=== PATIENT | male | born 1940 | race Caucasian/White ===

== ENCOUNTER → 2019-03-20 | Outpatient (CLI) | payer MEDICARE ==
[~2019-03-20] MED LIST: GABAPENTIN300 MG; GLIPIZIDE5 MG; JANUVIA100 MG; KEFLEX500 MG PO; LANTUS 3ML100 UNITS/; LEVOTHYROXINE50 MCG; LISINOPRIL10 MG; METOPROLOL SUCC25 MG; REGADENOSON 0.4 MG/5 ML SYR IV ONE; SIMVASTATIN20 MG; TAMSULOSIN
--- NOTE | 2019-03-31 09:48 | Myoview Stress Test ---
DATE OF STUDY: 03/20/2019 08:44:00 Stress Test - Treadmill ONLY PROCEDURE TITLE: Rest/stress single isotope SPECT imaging with pharmacologic stress and gated SPECT imaging. INDICATION: Syncope. PROCEDURE IN DETAIL: Pharmacologic stress testing was performed with regadenoson per protocol. The heart rate was 87 beats per minute at rest increased to 103 beats per minute during the regadenoson infusion. The resting blood pressure was 121/87 mmHg an increased to 170/67 mmHg, which is a normal response. The resting electrocardiogram demonstrated normal sinus rhythm. There were no ST-segment changes suggestive of myocardial ischemia. Occasional PVCs were observed during recovery. Myocardial perfusion imaging was performed at rest following injection of 11 mCi of tetrofosmin. At peak pharmacologic effect, the patient was injected with 32 mCi of tetrofosmin. Gated post-stress tomographic imaging was performed. FINDINGS: The overall quality of study is fair. Left ventricular cavity is noted be normal size on the rest and stress studies. SPECT images demonstrate homogeneous tracer due to distribution throughout the myocardium. Gated SPECT imaging reveals normal myocardial thickening and wall motion. Left ventricular ejection was calculated to be 58%. IMPRESSION: Myocardial perfusion imaging is normal. Overall, left ventricular systolic function was normal without regional wall motion abnormalities. Left ventricular cavity is noted to be normal size on the rest and stress studies. SPECT images demonstrate a small mild perfusion defect in the inferolateral wall on stress that was not present on rest. Gated SPECT imaging reveals normal myocardial thickening and wall motion. Left ventricular ejection fraction was calculated to be to be 58%. IMPRESSION: Myocardial perfusion imaging is abnormal. There is a small area of ischemia in the inferolateral wall. The overall left ventricular systolic function was normal without regional wall motion abnormalities. Dorothy Stewart MD ABS/MODL /[id number]
== END ==
LOC: NM 08:31
PROVIDERS: ATTEND Internal Medicine Cardiovascular Disease
DX: R55 Syncope and collapse (principal)
CPT/HCPCS: 78452; 93017; 93306; 93880; A9502; J2785